=== PATIENT | female | born 1980 | race Caucasian/White ===

== ENCOUNTER 2022-07-05 04:34 | Emergency (ER) | payer BC, OTHER ==
[~2022-07-05] VITALS: Ht 165.1 cm; Wt 70.0 kg
--- NOTE | 2022-07-05 04:58 | ED Abdominal Pain ---
General Stated Complaint: ABD PAIN Source of Information: Patient Exam Limitations: No Limitations (ULISES NO MD) History of Present Illness Date Seen by Provider: Jul 05, 2022 Time Seen by Provider: 04:39 Initial Comments 42yoF with no pertinent PMH coming in due to lower abdominal pain. Started about an hour and a half ago now. Was constant, now with intermittent cramping/spasming type pain. Has never had this pain before. It is moderate, and nothing really seems to make it better or worse. Has associated nausea but no vomiting. LMP was 1-1/2 weeks ago but it was irregular and she was a couple months late. This episode only lasted 2 days compared to normal. After the pain started she had a decent bowel movement that was normal and did not help the pain. Otherwise denies any dysuria, vaginal bleeding, vaginal discharge, diarrhea, vomiting, chest pain, shortness of breath, weakness, numbness, rash, or any other concerns. (ULISES NO MD) Allergies and Home Medications Allergies Coded Allergies: No Known Drug Allergies (Unverified , 07/05/22) Patient Home Medication List Home Medication List Reviewed: Yes (ULISES NO MD) Home Medication List Reviewed: Yes (RENAY WILKINSON MD) Ondansetron (Ondansetron Odt) 4 Mg Tab.rapdis, 4 MG PO Q6H PRN for NAUSEA/VOMITING-1ST LINE Prescribed by: ULISES NO on 07/05/22 0642 Review of Systems Review of Systems Constitutional: No fever EENTM: No Blurred Vision Respiratory: Denies Cough Cardiovascular: Denies Chest Pain Gastrointestinal: Abdominal Pain; Denies Diarrhea; Nausea; Denies Vomiting Genitourinary: No Symptoms Reported Musculoskeletal: no symptoms reported Skin: no symptoms reported Psychiatric/Neurological: No Symptoms Reported Endocrine: No Symptoms Reported Hematologic/Lymphatic: No Symptoms Reported (ULISES NO MD) All Other Systems Reviewed Negative Unless Noted: Yes (ULISES NO MD) Past Stmsdjp-Masewl-Brzqfo Hx Patient Social History Tobacco Use?: No (ULISES NO MD) Past Medical History Surgeries: No (ULISES NO MD) Physical Exam Vital Signs Vital Signs - First Documented 07/05/22 04:40 Temp 36.5 Pulse 72 Resp 20 B/P (MAP) 145/125 (132) Pulse Ox 100 O2 Delivery Room Air (RENAY WILKINSON MD) Vital Signs Capillary Refill : (ULISES NO MD) Height/Weight/BMI Height: '" Weight: lbs. oz. kg; BMI Method: General Appearance: WD/WN, mild distress HEENT: PERRL/EOMI, normal ENT inspection, pharynx normal Neck: non-tender, full range of motion, supple, normal inspection Respiratory: chest non-tender, lungs clear, normal breath sounds, no respiratory distress, no accessory muscle use Cardiovascular: regular rate, rhythm, no edema, no murmur Gastrointestinal: normal bowel sounds, soft; No distended, No guarding, No rebound; tenderness Extremities: normal range of motion, non-tender, normal inspection, no pedal edema, no calf tenderness, normal capillary refill Back: normal inspection, no CVA tenderness Neurologic/Psychiatric: no motor/sensory deficits, alert, normal mood/affect Skin: normal color, warm/dry Lymphatic: no adenopathy (ULISES NO MD) Progress/Results/Core Measures Results/Orders Lab Results Laboratory Tests Test 07/05/22 05:20 07/05/22 06:20 Range/Units White Blood Count 15.4 H 4.3-11.0 10^3/uL Red Blood Count 4.22 3.80-5.11 10^6/uL Hemoglobin 12.6 11.5-16.0 g/dL Hematocrit 37 35-52 % Mean Corpuscular Volume 89 80-99 fL Mean Corpuscular Hemoglobin 30 25-34 pg Mean Corpuscular Hemoglobin Concent 34 32-36 g/dL Red Cell Distribution Width 12.5 10.0-14.5 % Platelet Count 323 130-400 10^3/uL Mean Platelet Volume 10.4 9.0-12.2 fL Immature Granulocyte % (Auto) 1 % Neutrophils (%) (Auto) 67 42-75 % Lymphocytes (%) (Auto) 26 12-44 % Monocytes (%) (Auto) 5 0-12 % Eosinophils (%) (Auto) 1 0-10 % Basophils (%) (Auto) 0 0-10 % Neutrophils # (Auto) 10.4 H 1.8-7.8 10^3/uL Lymphocytes # (Auto) 4.0 1.0-4.0 10^3/uL Monocytes # (Auto) 0.8 0.0-1.0 10^3/uL Eosinophils # (Auto) 0.1 0.0-0.3 10^3/uL Basophils # (Auto) 0.1 0.0-0.1 10^3/uL Immature Granulocyte # (Auto) 0.1 0.0-0.1 10^3/uL Neutrophils % (Manual) 69 % Lymphocytes % (Manual) 22 % Monocytes % (Manual) 4 % Reactive Lymphocytes 5 % Platelet Estimate NORMAL Blood Morphology Comment NORMAL Sodium Level 140 135-145 MMOL/L Potassium Level 3.5 L 3.6-5.0 MMOL/L Chloride Level 103 98-107 MMOL/L Carbon Dioxide Level 25 21-32 MMOL/L Anion Gap 12 5-14 MMOL/L Blood Urea Nitrogen 12 7-18 MG/DL Creatinine 0.70 0.60-1.30 MG/DL Estimat Glomerular Filtration Rate 112 BUN/Creatinine Ratio 17 Glucose Level 112 H 70-105 MG/DL Calcium Level 9.4 8.5-10.1 MG/DL Corrected Calcium 9.2 8.5-10.1 MG/DL Magnesium Level 1.9 1.6-2.4 MG/DL Total Bilirubin 0.3 0.1-1.0 MG/DL Aspartate Amino Transf (AST/SGOT) 19 5-34 U/L Alanine Aminotransferase (ALT/SGPT) 27 0-55 U/L Alkaline Phosphatase 63 40-136 U/L Total Protein 7.1 6.4-8.2 GM/DL Albumin 4.3 3.2-4.5 GM/DL Lipase 21 8-78 U/L Serum Test, Qualitative NEGATIVE NEGATIVE Urine Color YELLOW Urine Clarity CLEAR Urine pH 5.0 5-9 Urine Specific [place] <=1.005 1.016-1.022 Urine Protein NEGATIVE NEGATIVE Urine Glucose (UA) NEGATIVE NEGATIVE Urine Ketones NEGATIVE NEGATIVE Urine Nitrite NEGATIVE NEGATIVE Urine Bilirubin NEGATIVE NEGATIVE Urine Urobilinogen 0.2 < = 1.0 MG/DL Urine Leukocyte Esterase NEGATIVE NEGATIVE Urine RBC (Auto) 3+ H NEGATIVE Urine RBC 5-10 H /HPF Urine WBC RARE /HPF Urine Squamous Epithelial Cells 2-5 /HPF Urine Crystals NONE /LPF Urine Bacteria FEW H /HPF Urine Casts NONE /LPF Urine Mucus SMALL H /LPF Urine Culture Indicated NO (RENAY WILKINSON MD) Medications Given in ED Current Medications Medications Dose Ordered Sig/Essence Route Start Time Stop Time Status Last Admin Dose Admin Hyoscyamine Sulfate 0.125 mg ONCE ONCE PO 07/05/22 05:00 07/05/22 05:03 DC 07/05/22 05:11 0.125 MG Iohexol 100 ml ONCE ONCE IV 07/05/22 05:15 07/05/22 05:16 DC 07/05/22 06:07 100 ML Ondansetron HCl 4 mg ONCE ONCE IVP 07/05/22 05:00 07/05/22 05:03 DC 07/05/22 05:11 4 MG Sodium Chloride 10 ml NEEDED PRN IV 07/05/22 05:15 07/05/22 06:08 10 ML Sodium Chloride 100 ml ONCE ONCE IV 07/05/22 05:15 07/05/22 05:16 DC 07/05/22 06:08 80 ML (RENAY WILKINSON MD) Vital Signs/I&O 07/05/22 04:40 Temp 36.5 Pulse 72 Resp 20 B/P (MAP) 145/125 (132) Pulse Ox 100 O2 Delivery Room Air (RENAY WILKINSON MD) Progress Progress Note : Progress Note 42-year-old female with above history coming in due to lower abdominal discom fort. ABCs were intact and vitals were stable on presentation. Physical exam with some lower jas tenderness but no signs of peritonitis. An IV was placed and she was given morphine for pain and Zofran for nausea which helped significantly. Basic labs obtained including a slightly elevated white blood cell count which is unremarkable, negative test, normal kidney fu nction. CT abdomen pelvis with irregular endometrium with ultrasound recommended to rule out malignancy. Will order ultrasound to be completed and have her follow-up with [facility] as an outpatient. There is also a questionable pulmonary nodule which I let the patient know about and told her she needs to have follow-up CT in roughly 3 months to be sure this is okay. (ULISES NO MD) Progress Note : Time: 08:42 Progress Note I assumed care of patient from Dr. No at shift change. Patient was waiting over for an ultrasound to evaluate her irregular endometrium seen on CT scan. This was read out as heterogeneous hypervascular endometrium. Differential includes endometritis versus malignancy. Recommend follow-up with gynecology and likely will need lab work as well as endometrial biopsy. (RENAY WILKINSON MD) Diagnostic Imaging Diagonstic Imaging: CT (abd/pelvis) Comments NAME: [facility] REC#: [id number] PT STATUS: REG ER : 1980 PHYSICIAN: ULISES NO MD ADMIT DATE: 07/05/22/ER FS Draft Date of Exam:07/05/22 CT ABD/PELV W (APPENDICITIS) PROCEDURE: CT abdomen and pelvis with contrast, rule out appendicitis. TECHNIQUE: Multiple contiguous axial images were obtained through the abdomen and pelvis after the administration of intravenous contrast. All CT scans use one or more of the following dose optimizing techniques: automated exposure control, MA and/or KvP adjustment based on patient size and exam type or iterative reconstruction. INDICATION: Lower abdominal pain COMPARISON: None FINDINGS: There is dependent atelectasis in the lung bases. The heart is normal in size. At the 1st image there is a questionable pulmonary nodule measuring 6 mm. This could also represent a partially seen vessel. The liver demonstrates no focal lesions. The spleen appears normal. The pancreas is normal. The adrenal glands appear normal. The kidneys demonstrate no hydronephrosis. There is a simple cyst in the right kidney. No enhancing masses are seen. The appendix is normal. The bowel loops are generally nondistended, with a prominent loop of bowel in the midabdomen measuring up to 2.8 cm. There does appear to be mild wall thickening of the distal colon which is thought to be due to nondistention. The aorta is normal in caliber. No lymphadenopathy is seen. There is trace free fluid in the pelvis. No free air is seen. No acute osseous abnormality is seen. The uterus and endometrium is markedly irregular, extending down to the mildly prominent heterogeneous cervix. There is a right ovarian cyst measuring 3 cm. IMPRESSION: 1. Markedly irregular endometrium with heterogeneous cervix. Malignancy is not excluded. Recommend further evaluation with ultrasound, although ultimately tissue sampling may be needed. 2. Right ovarian cyst measuring 3 cm. 3. Wall thickening of the distal colon is thought to be due to nondistention rather than inflammation. 4. Questionable pulmonary nodule in the right lower lobe, could also represent a partially seen vessel. Consider nonemergent follow-up CT of the chest. Dictated on workstation # [id number] Dict: 07/05/22618 Trans: 07/05/22628 SAVAGE [id number] Interpreted by: LUIS COVINGTON MD Electronically signed by: (ULISES NO MD) Diagonstic Imaging: Ultrasound Plain Films/CT/US/NM/MRI: pelvis Comments NAME: [facility] ALEX[facility] REC#: [id number] PT STATUS: REG ER : 1980 PHYSICIAN: ULISES NO MD ADMIT DATE: 07/05/22/ER FS Draft Date of Exam:07/05/22 US NON OB PELVIS COMP/TRANSVAG PROCEDURE: Pelvic complete, transabdominal and transvaginal sonogram. Limited pelvic doppler. TECHNIQUE: Multiple real-time grayscale images were obtained of the pelvis in various projections transabdominally and transvaginally. Limited pelvic duplex images were obtained. HISTORY: unusual CT of the endometrium with abdominal pain COMPARISON: 07/05/2022 FINDINGS: Uterus: The uterus is anteverted and measures 8.8 x 5.5 x 6.1 cm. There is a 5.2 cm heterogeneous, vascular appearance of the anterior uterus. Multiple nabothian cysts are present. Endometrium: The endometrium is increased in thickness and measures 1.6 cm. The endometrium is thickened and irregular in appearance Adnexa: Both ovaries have a normal physiologic appearance. The right ovary measures 4.3 x 2.1 x 3.4 cm and the left ovary measures 2.2 x 1.3 x 1.9 cm. Duplex images reveal normal vascular flow to both ovaries. Other: There is no free fluid within the pelvis. IMPRESSION: 1. Heterogeneous, hypervascular appearance of the uterus with heterogeneous, thickened appearance of the endometrium. This finding is indeterminate but could be seen with infectious process such as endometritis. Differential consideration would also include neoplastic process. Recommend correlation with clinical history, laboratory values, possible endometrial biopsy if clinically indicated. Dictated on workstation # [id number] Dict: 07/05/22828 Trans: 07/05/22836 CVB [id number] Interpreted by: GIANFRANCO BARAJAS DO Electronically signed by: (RENAY WILKINSON MD) Departure Impression Primary Impression: Lower abdominal pain Additional Impressions: Pulmonary nodule Endometrial thickening on ultrasound Disposition: HOME, SELF-CARE Condition: Stable Departure-Patient Inst. Decision time for Depature: 08:48 (RENAY WILKINSON MD) Referrals: NO,LOCAL PHYSICIAN (PCP) Primary Care Physician TURNER CANELA DO Patient Instructions: Endometrial Biopsy, Incidental Findings, Pulmonary Nodule, Severe Abdominal Pain, Adult (DC) Add. Discharge Instructions: The CT scan and Ultrasound showed that your lining of the uterus was thickened. You likely need to have a biopsy of the endometrial lining of the uterus as well as lab work to see what was causing the thickening of your uterus lining and your pain. You could follow-up with Dr. Canela in [facility] who is a environmental engineering intern. You could also follow-up with a different environmental engineering intern if that is your preference. Take ibuprofen and/or Tylenol as needed for pain. Nausea medicines were sent to your pharmacy. You had a possible 6 mm pulmonary nodule in your right lower area of your lung. It is possible this was just a blood vessel that looked funny. I recommended repeat CT of your chest in roughly 3 months ordered by your primary care physician to follow-up on this. Scripts Ondansetron (Ondansetron Odt) 4 Mg Tab.rapdis 4 MG PO Q6H PRN for NAUSEA/VOMITING-1ST LINE for 5 Days, #20 TAB Prov: ULISES NO MD 07/05/22 Work/School Note: Work Release Form Date Seen in the Emergency Department: Jul 05, 2022 Return to Work: Jul 07, 2022 Restrictions: No Restrictions ULISES NO MD Jul 05, 2022 04:58 RENAY WILKINSON MD Jul 05, 2022 08:48
[2022-07-05] MEDS ORDERED: morphine INJ 10 MG/ML 1ML (SYR OR VIAL) IVP STA (04:59)
[2022-07-05] MEDS ORDERED: ONDANSETRON 4 MG/2 ML (SDV) Z0FRAN IVP ONE (05:00)
[2022-07-05] MEDS ORDERED: HYOSCYAMINE 0.125 MG (LEVSIN) TAB PO ONE (05:00)
[2022-07-05] MEDS ORDERED: CATHETER FLUSH 10 ML SYR IV PRN (05:15)
[2022-07-05] MEDS ORDERED: NS 100 ML (IVPB) BAG IV ONE (05:15)
[2022-07-05] MEDS ORDERED: IOHEXOL 350 MG/ML 100 ML (OMNIPAQUE 350) VIAL IV ONE (05:15)
[2022-07-05] MEDS ORDERED: HOLD METFORMIN - RECEIVED CONTRAST 20 ML VIAL IV SCH (05:15)
[2022-07-05 05:28] LABS: BASOPHILS # (AUTO) 0.1 10^3/uL (0.0-0.1); BASOPHILS % (AUTO) 0 % (0-10); EOSINOPHILS # (AUTO) 0.1 10^3/uL (0.0-0.3); EOSINOPHILS % (AUTO) 1 % (0-10); HEMATOCRIT 37 % (35-52); HEMOGLOBIN 12.6 g/dL (11.5-16.0); LYMPHOCYTES % (AUTO) 26 % (12-44); MEAN CORPUSCULAR HEMOGLOBIN 30 pg (25-34); MEAN CORPUSCULAR HGB CONC 34 g/dL (32-36); MEAN CORPUSCULAR VOLUME 89 fL (80-99); MEAN PLATELET VOLUME 10.4 fL (9.0-12.2); MONOCYTES # (AUTO) 0.8 10^3/uL (0.0-1.0); MONOCYTES % (AUTO) 5 % (0-12); NEUTROPHILS # (AUTO) 10.4 10^3/uL (1.8-7.8); NEUTROPHILS % (AUTO) 67 % (42-75); PLATELET COUNT 323 10^3/uL (130-400); WHITE BLOOD COUNT 15.4 10^3/uL (4.3-11.0)
[2022-07-05 05:59] LABS: CREATININE SERUM 0.7 MG/DL (0.60-1.30); POTASSIUM 3.5 MMOL/L (3.6-5.0)
[2022-07-05 06:00] LABS: ALBUMIN 4.3 GM/DL (3.2-4.5); BILIRUBIN,TOTAL 0.3 MG/DL (0.1-1.0); CALCIUM 9.4 MG/DL (8.5-10.1); MAGNESIUM 1.9 MG/DL (1.6-2.4); TOTAL PROTEIN 7.1 GM/DL (6.4-8.2)
[2022-07-05 06:11] LABS: LYMPHOCYTES % (MANUAL) 22 %; MONOCYTES % (MANUAL) 4 %; NEUTROPHILS % (MANUAL) 69 %; REACTIVE LYMPHOCYTES 5 %
[2022-07-05 06:12] LABS: PLATELET ESTIMATE NORMAL; RBC MORPH NORMAL
[2022-07-05] MEDS ORDERED: KETOROLAC 30 MG/ML VIAL IVP PRN (06:15)
--- NOTE | 2022-07-05 06:28 | Diagnostic Imaging Report ---
PROCEDURE: CT abdomen and pelvis with contrast, rule out appendicitis. TECHNIQUE: Multiple contiguous axial images were obtained through the abdomen and pelvis after the administration of intravenous contrast. All CT scans use one or more of the following dose optimizing techniques: automated exposure control, MA and/or KvP adjustment based on patient size and exam type or iterative reconstruction. INDICATION: Lower abdominal pain COMPARISON: None FINDINGS: There is dependent atelectasis in the lung bases. The heart is normal in size. At the 1st image there is a questionable pulmonary nodule measuring 6 mm. This could also represent a partially seen vessel. The liver demonstrates no focal lesions. The spleen appears normal. The pancreas is normal. The adrenal glands appear normal. The kidneys demonstrate no hydronephrosis. There is a simple cyst in the right kidney. No enhancing masses are seen. The appendix is normal. The bowel loops are generally nondistended, with a prominent loop of bowel in the midabdomen measuring up to 2.8 cm. There does appear to be mild wall thickening of the distal colon which is thought to be due to nondistention. The aorta is normal in caliber. No lymphadenopathy is seen. There is trace free fluid in the pelvis. No free air is seen. No acute osseous abnormality is seen. The uterus and endometrium is markedly irregular, extending down to the mildly prominent heterogeneous cervix. There is a right ovarian cyst measuring 3 cm. IMPRESSION: 1. Markedly irregular endometrium with heterogeneous cervix. Malignancy is not excluded. Recommend further evaluation with ultrasound, although ultimately tissue sampling may be needed. 2. Right ovarian cyst measuring 3 cm. 3. Wall thickening of the distal colon is thought to be due to nondistention rather than inflammation. 4. Questionable pulmonary nodule in the right lower lobe, could also represent a partially seen vessel. Consider nonemergent follow-up CT of the chest. Dictated by: Dictated on workstation # [id number]
[2022-07-05 06:30] LABS: BILIRUBIN,URINE NEGATIVE (NEGATIVE); CLARITY,URINE CLEAR; COLOR,URINE YELLOW; GLUCOSE, URINE (UA) NEGATIVE (NEGATIVE); KETONES,URINE NEGATIVE (NEGATIVE); LEUKOCYTE ESTERASE ,URINE NEGATIVE (NEGATIVE); NITRITE,URINE NEGATIVE (NEGATIVE); PROTEIN,URINE NEGATIVE (NEGATIVE)
[2022-07-05 06:36] LABS: BACTERIA,URINE FEW /HPF; WBC,URINE RARE /HPF
[2022-07-05] MEDS ORDERED: ONDA4TAB11 PO (06:42)
[2022-07-05] MEDS ORDERED: LACTATED RINGERS 1,000 ML IV STA (06:57)
--- NOTE | 2022-07-05 08:37 | Diagnostic Imaging Report ---
PROCEDURE: Pelvic complete, transabdominal and transvaginal sonogram. Limited pelvic doppler. TECHNIQUE: Multiple real-time grayscale images were obtained of the pelvis in various projections transabdominally and transvaginally. Limited pelvic duplex images were obtained. HISTORY: unusual CT of the endometrium with abdominal pain COMPARISON: 07/05/2022 FINDINGS: Uterus: The uterus is anteverted and measures 8.8 x 5.5 x 6.1 cm. There is a 5.2 cm heterogeneous, vascular appearance of the anterior uterus. Multiple nabothian cysts are present. Endometrium: The endometrium is increased in thickness and measures 1.6 cm. The endometrium is thickened and irregular in appearance Adnexa: Both ovaries have a normal physiologic appearance. The right ovary measures 4.3 x 2.1 x 3.4 cm and the left ovary measures 2.2 x 1.3 x 1.9 cm. Duplex images reveal normal vascular flow to both ovaries. Other: There is no free fluid within the pelvis. IMPRESSION: 1. Heterogeneous, hypervascular appearance of the uterus with heterogeneous, thickened appearance of the endometrium. This finding is indeterminate but could be seen with infectious process such as endometritis. Differential consideration would also include neoplastic process. Recommend correlation with clinical history, laboratory values, possible endometrial biopsy if clinically indicated. Dictated by: Dictated on workstation # [id number]
[2022-07-05 08:59] VITALS: BP 134/70
== END 2022-07-05 08:59 | disposition home or self-care (01) ==
LOC: ER FS 04:40
DX: R10.30 Lower abdominal pain, unspecified (principal); R91.1 Solitary pulmonary nodule; R93.89 Abnormal findings on diagnostic imaging of other specified body structures; R11.0 Nausea; D72.829 Elevated white blood cell count, unspecified; Z28.310 Unvaccinated for COVID-19; Z32.02 Encounter for pregnancy test, result negative
CPT/HCPCS: 36415; 74177; 76830; 76856; 80053; 81000; 83690; 83735; 84703; 85007; 85027; Q9967